=== PATIENT | male | born 1955 | race African-American/Black ===

== ENCOUNTER 2023-05-10 13:49 | Inpatient (IN) ==
[2023-05-10 15:34] LABS: BASOPHILS # (AUTO) 0.1 X10^3/uL (0.0-0.1); EOSINOPHILS # (AUTO) 0.1 x10^3/uL (0.0-0.2); HEMOGLOBIN 15.4 g/dL (13.5-18.0); LYMPHOCYTES # (AUTO) 4.1 X10^3/uL (1.3-2.9); NEUTROPHILS # (AUTO) 3.5 x10^3/uL (2.2-4.8)
[2023-05-10 15:39] LABS: EOSINOPHILS % (AUTO) 1.6 % (0.9-2.9); LYMPHOCYTES % (AUTO) 48.4 % (21.0-51.0); MEAN CORPUSCULAR HEMOGLOBIN 28.9 pg (27.0-34.0); MEAN CORPUSCULAR HGB CONC 34.3 g/dL (33.0-35.0); MEAN CORPUSCULAR VOLUME 84.2 fL (80.0-100.0); MEAN PLATELET VOLUME 7.7 fL (7.4-11.0); MONOCYTES # (AUTO) 0.7 x10^3/uL (0.3-0.8); MONOCYTES % (AUTO) 8.5 % (0.0-13.0); NEUTROPHILS % (AUTO) 40.5 % (42.0-75.0); PLATELET COUNT 215 X10^3/uL (150.0-450.0); RED BLOOD COUNT 5.34 X10^6/uL (4.7-6.0); RED CELL DISTRIBUTION WIDTH 14.1 % (11.6-16.5); WHITE BLOOD COUNT 8.6 X10^3/uL (3.6-10.0)
[2023-05-10 15:46] LABS: ALANINE AMINOTRANSFERASE 12 Units/L (12-78); ALBUMIN 4.5 g/dL (3.4-5.0); ALKALINE PHOSPHATASE 113 Units/L (46-116); ASPARTATE AMINO TRANSFERASE 14 Units/L (15-37); BLOOD UREA NITROGEN 15 mg/dL (7-18); CALCIUM 9.3 mg/dL (8.5-10.1); CARBON DIOXIDE 29.6 mmol/L (21-32); CHLORIDE 98 mmol/L (98-107); CREATININE 1.28 mg/dL (0.70-1.30); GLUCOSE 85 mg/dL (65-99); POTASSIUM 4.1 mmol/L (3.5-5.1); SODIUM 136 mmol/L (136-145); TOTAL PROTEIN 7.7 g/dL (6.4-8.2); eGFR NON BLACK RACES 59 (>60)
[2023-05-10 15:56] VITALS: BMI 23.7
[2023-05-10 15:58] LABS: PLATELET MORPHOLOGY COMMENT ABNORMAL (NORMAL)
--- NOTE | 2023-05-10 16:13 | EKG ---
Test Reason : surgical clearance Blood Pressure : */* mmHG Vent. Rate : 64 BPM Atrial Rate : 64 BPM P-R Int : 174 ms QRS Dur : 92 ms QT Int : 408 ms P-R-T Axes : 57 60 62 degrees QTc Int : 420 ms Normal sinus rhythm with sinus arrhythmia Septal infarct , age undetermined Abnormal ECG No previous ECGs available Confirmed by Brigido Yeung ([id number]) on 05/11/2023 3:11:37 PM Referred By: Confirmed By: Brigido Yeung
[2023-05-10] MEDS: LR 1,000 ML IV 1,000 ML IV SCH (17:00)
[2023-05-10] MEDS ORDERED: OMNIPAQUE 350 mg/mL 50 mL BTL 50 ML ONE (17:07)
[2023-05-10] MEDS ORDERED: NS 100 ML IV 100 ML ONE (17:07)
[2023-05-10] MEDS ORDERED: OMNIPAQUE 350 mg/mL 100 mL BTL 100 ML ONE (17:07)
--- NOTE | 2023-05-10 19:10 | CT ---
HISTORYlimb threatening ischemia both legsSTUDYCTA AORTA WITH RUNOFFCOMPARISONTECHNIQUEMultiple axial images of the abdomen and pelvis were obtained from the mesenteric vasculature to the plantar surface of the feet both prior to and after the administration of IV contrast. 3D reconstructions were performed utilizing radial maximum intensity projection imaging. Dose reduction techniques including Automated Exposure Control (AEC) and adjustment of mA and kV were utilized.FINDINGSThere is mild basilar emphysema/scarring. There is no pleural effusion or pneumothorax. The liver, pancreas, spleen, adrenal glands are normal. Kidneys are normal in size and enhancement. The gallbladder is contracted. There is liquid in the stomach. Small bowel loops are normal as is the appendix. The large bowel is normal. Urinary bladder is distended. Prostate measures 5.2 cm in diameter. There is fat in the inguinal canal bilaterally.Upper aorta: There is disease at the origin of the celiac trunk but no flow limiting stenosis. There is some soft plaque in the proximal SMA but no flow limiting stenosis. There is calcific plaque at the origin of the renal artery bilaterally but no flow limiting stenosis. There is some heterogeneous plaque in the branches of the left renal artery.Infrarenal abdominal aorta: There is heterogeneous plaque but no aneurysm or flow limiting stenosis. 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 There is fairly severe heterogeneous plaque in the left common iliac arteryExternal iliac arteries: Right side is completely occluded at the origin. There is reconstitution distally near the inguinal canal. Left-sided has a high-grade stenosis at the origin of the external iliac. There is also fairly severe disease in the left internal iliac artery.Common femoral arteries: Heterogeneous plaque in the common femoral artery bilaterally causing close to 50 percent stenosis.Superficial femoral arteries: Severe multifocal disease in the SFA bilaterally. There is near occlusion in the proximal left SFA with minimal flow seen into the distal vessel.Popliteal arteries: There is greater than 50 percent stenosis in the popliteal bilaterally.Tibial vasculature: On the right side there is a high-grade stenosis at the origin of the anterior tibial artery with reconstitution approximately 1.5 cm distally. There is 2 vessel runoff to the foot via the peroneal and popliteal artery. There is some reconstitution of the anterior tibial artery near the ankle. On the left side, there is also disease at the origin of the anterior tibial artery and to lesser extent at the origin of the posterior tibial artery. There is 3 vessel runoff to the ankle which is most pronounced in the posterior tibial artery and weak in the anterior tibial artery and peroneal artery.IMPRESSION1. 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 2. Reconstitution of the right distal external iliac artery. 3. Severe multifocal disease in the right SFA, or popliteal, and at the origin of the right anterior tibial artery.4. Fairly severe stenosis at the origin of the left external iliac artery. 5. Severe multifocal disease in the left SFA, popliteal, and at the origin of the left anterior tibial artery and left posterior tibial artery.6. Prostate hypertrophy.Electronically signed by: Arvin Egan (May 10, 2023 19:08:10)
[2023-05-10] MEDS ORDERED: NEURONTIN CAP 300 MG ONE (20:13)
[2023-05-10] MEDS: ZOCOR TAB 20 MG PO SCH (21:04)
[2023-05-10] MEDS: NEURONTIN CAP 300 MG PO SCH (21:04)
[2023-05-10] MEDS: DESYREL PO SCH (21:04)
--- NOTE | 2023-05-10 21:58 | DR.UPDATE ---
H&P UPDATE Review Yes Any changes to H&P?: No
[2023-05-11] MEDS: LR 1,000 ML IV 1,000 ML IV SCH ×3 (04:54→21:00)
[2023-05-11] MEDS: NEURONTIN CAP 300 MG PO SCH ×3 (05:03→21:00)
--- NOTE | 2023-05-11 07:14 | RAD ---
HISTORYLower extremity ischemiaSTUDYChest AP portableCOMPARISONNoneFINDINGSHeart size is normal. Marissa are normal. Aorta is calcified. Lung lanier are clear. No pleural effusions are identified. Bony thorax is unremarkable.IMPRESSIONLungs clearElectronically signed by: ZOEY GUILLEN (May 11, 2023 07:14:00)
[2023-05-11] MEDS: HYZAAR 50/12.5 MG PO SCH (08:10)
[2023-05-11] MEDS ORDERED: ANCEF VIAL 1 GRAM ONE (08:11)
[2023-05-11] MEDS ORDERED: NS 100 ML IV 100 ML ONE (08:11)
[2023-05-11] MEDS ORDERED: LR 1,000 ML IV 1,000 ML IV ONE (08:11)
[2023-05-11] MEDS ORDERED: VERSED ONE (09:08)
[2023-05-11] MEDS ORDERED: FENTANYL VIAL INJ 100 mcg ONE (09:08)
[2023-05-11] MEDS ORDERED: ZOFRAN INJ 4 MG VIAL ONE (09:09)
[2023-05-11] MEDS ORDERED: PEPCID 20 MG VIAL ONE (09:09)
[2023-05-11] MEDS ORDERED: MARCAINE 0.5% ONE (09:10)
[2023-05-11] MEDS ORDERED: HEPARIN SODIUM IN D5W 75,000 UNITS/1,500 ML BAG ONE (09:10)
[2023-05-11] MEDS ORDERED: XYLOCAINE 2 % (PLAIN) ONE (09:19)
[2023-05-11] MEDS ORDERED: VISIPAQUE 100 ML ONE ×2 (09:20→10:17)
[2023-05-11] MEDS ORDERED: PRECEDEX INJ VIAL IVP ONE (09:27)
[2023-05-11] MEDS ORDERED: BENADRYL INJ 50 MG VIAL ONE (09:29)
[2023-05-11] MEDS ORDERED: OFIRMEV IV 1000 MG VIAL 1,000 MG/100 ML VIAL IV ONE (09:29)
[2023-05-11] MEDS ORDERED: DIPRIVAN VIAL 20 ML ONE ×3 (09:29→11:13)
[2023-05-11] MEDS ORDERED: HEPARIN SODIUM INJ 5000 UNITS ONE ×2 (09:29→10:38)
[2023-05-11] MEDS ORDERED: ROBINUL ONE (09:34)
[2023-05-11] MEDS ORDERED: DECADRON INJ ONE (09:35)
[2023-05-11] MEDS ORDERED: EPHEDRINE SULFATE INJ ONE (09:35)
[2023-05-11] MEDS ORDERED: NS 1,000 ML IV 1,000 ML ONE (10:17)
[2023-05-11] MEDS ORDERED: PROTAMINE SULFATE 50 MG VIAL ONE (10:38)
[2023-05-11] MEDS ORDERED: TORADOL 30 MG VIAL ONE (12:05)
--- NOTE | 2023-05-11 12:55 | OR.IMMED ---
IMMEDIATE POST-OP NOTE Immediate Post-Op Note Pre-Op Diagnosis: critical limb ischemia right leg and left leg, right leg is w orse Post-Op Diagnosis: same Procedure: Diagnostic aortogram , diagnostic arteriogram right leg ,bilateral common iliac artery stenting, bilateral external iliac artery stenting atherectomy and drug-coated balloon angioplasty of the right popliteal and distal superficial femoral arteries, atherectomy and drug coated balloon angioplasty proximal right superficial femoral artery and distal external iliac artery Surgeon/Chaplain: Kevin Findings: complete occlusion of the right common and right external iliac arteries with reconstitution of the proximal right common femoral artery, severe stenosis of the left common iliac and left external iliac arteries, severe stenosis Proximal right superficial femoral artery ,severe stenosis distal right superficial femoral artery and popliteal artery Estimated Blood Loss: 100cc Complications: none Progress Notes: Return to ICU for diet and pain control. Will probably be discharged tomorrow and return next week for intervention of the left leg with near total occlusion left superficial femoral artery.
[2023-05-11] MEDS: PROzac PO SCH (14:13)
[2023-05-11] MEDS: PERCOCET TAB 5/325 MG PO PRN ×2 (16:26→20:59)
[2023-05-11] MEDS: ZOCOR TAB 20 MG PO SCH (20:59)
[2023-05-11] MEDS: DESYREL PO SCH (20:59)
[2023-05-12] MEDS: PERCOCET TAB 5/325 MG PO PRN ×2 (00:36→05:16)
[2023-05-12] MEDS: NEURONTIN CAP 300 MG PO SCH (05:15)
[2023-05-12] MEDS: LR 1,000 ML IV 1,000 ML IV SCH ×2 (05:15→07:15)
[2023-05-12 05:17] LABS: BLOOD UREA NITROGEN 14 mg/dL (7-18); CALCIUM 8.5 mg/dL (8.5-10.1); CARBON DIOXIDE 33.3 mmol/L (21-32); CHLORIDE 100 mmol/L (98-107); COR NA(FOR HYPERGLY) 139 mmol/L (136-145); CREATININE 1.14 mg/dL (0.70-1.30); GLUCOSE 145 mg/dL (65-99); POTASSIUM 3.5 mmol/L (3.5-5.1); SODIUM 138 mmol/L (136-145); eGFR NON BLACK RACES > 60 (>60)
[2023-05-12 08:36] VITALS: TEMP 97.2
[2023-05-12] MEDS: PROzac PO SCH (08:50)
[2023-05-12] MEDS: HYZAAR 50/12.5 MG PO SCH (08:50)
--- NOTE | 2023-05-12 11:05 | W.DIS.FURT ---
Summary of Discharge Discharge Summary of Date Date of Exam: 05/12/23 Admission Date Date of Admission: 05/10/23 Admission Diagnosis Hospital Course: This 68 year old male presented to my office on May 10 complaining of bilateral lower extremity rest pain. 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 On May 11 was taken to the operative Suite where he underwent bilateral common iliac and external iliac artery stenting with atherectomy and drug coated balloon angioplasty of the right superficial femoral and popliteal arteries. He has done well. He tolerated the procedure. Post-procedure creatinine is less than 1 . He will be discharged on his usual medications plus Xarelto 2.5 mg BID, aspirin 81 mg PO daily, and Percocet 5 mg tablets, one every six hours. Pain. He will follow up with me in one week and at that time we will schedule intervention of the left leg. Vital Signs: Vital Signs (72 hours) 05/10/23 15:00 05/10/23 16:11 05/10/23 15:11 Temperature 97.9 F Pulse Rate Pulse Rate [Left] 69 Respiratory Rate 20 Blood Pressure 170/83 Blood Pressure [Right Arm] 170/83 O2 Sat by Pulse Oximetry 97 Oxygen Delivery Method Room Air Room Air 05/10/23 15:32 05/10/23 15:45 05/10/23 16:00 Temperature Pulse Rate 68 70 77 Pulse Rate [Left] Respiratory Rate Blood Pressure Blood Pressure [Right Arm] O2 Sat by Pulse Oximetry 97 97 97 Oxygen Delivery Method Room Air 05/10/23 16:15 05/10/23 16:30 05/10/23 16:45 Temperature Pulse Rate 72 70 68 Pulse Rate [Left] Respiratory Rate Blood Pressure Blood Pressure [Right Arm] O2 Sat by Pulse Oximetry 97 96 96 Oxygen Delivery Method 05/10/23 17:00 05/10/23 19:35 05/10/23 19:00 Temperature Pulse Rate 69 67 Pulse Rate [Left] Respiratory Rate 18 Blood Pressure 139/74 143/78 Blood Pressure [Right Arm] O2 Sat by Pulse Oximetry 96 95 Oxygen Delivery Method Room Air Room Air Room Air 05/10/23 20:00 05/10/23 21:00 05/10/23 22:00 Temperature 98.3 F Pulse Rate 67 67 71 Pulse Rate [Left] Respiratory Rate 18 20 20 Blood Pressure 155/89 152/76 107/52 Blood Pressure [Right Arm] O2 Sat by Pulse Oximetry 96 97 92 L Oxygen Delivery Method Room Air Room Air Room Air 05/10/23 23:00 05/11/23 00:00 05/11/23 01:00 Temperature 97.9 F Pulse Rate 70 63 62 Pulse Rate [Left] Respiratory Rate 18 18 18 Blood Pressure 111/55 106/59 111/59 Blood Pressure [Right Arm] O2 Sat by Pulse Oximetry 93 L 94 L 95 Oxygen Delivery Method Room Air Room Air Room Air 05/11/23 02:00 05/11/23 03:00 05/11/23 04:00 Temperature 98.1 F Pulse Rate 61 62 64 Pulse Rate [Left] Respiratory Rate 18 18 18 Blood Pressure 100/53 109/67 121/65 Blood Pressure [Right Arm] O2 Sat by Pulse Oximetry 94 L 94 L 96 Oxygen Delivery Method Room Air Room Air Room Air 05/11/23 05:00 05/11/23 06:00 05/11/23 07:00 Temperature Pulse Rate 62 64 Pulse Rate [Left] Respiratory Rate 18 20 Blood Pressure 138/87 137/65 Blood Pressure [Right Arm] O2 Sat by Pulse Oximetry 95 95 Oxygen Delivery Method Room Air Room Air Room Air 05/11/23 07:00 05/11/23 07:07 05/11/23 07:07 Temperature Pulse Rate 64 65 Pulse Rate [Left] Respiratory Rate 17 28 H Blood Pressure 163/80 Blood Pressure [Right Arm] O2 Sat by Pulse Oximetry 98 96 Oxygen Delivery Method 05/11/23 07:15 05/11/23 07:30 05/11/23 07:45 Temperature Pulse Rate 65 64 63 Pulse Rate [Left] Respiratory Rate 19 20 19 Blood Pressure Blood Pressure [Right Arm] O2 Sat by Pulse Oximetry 96 97 98 Oxygen Delivery Method 05/11/23 08:00 05/11/23 08:00 05/11/23 08:16 Temperature 97.8 F Pulse Rate 65 61 Pulse Rate [Left] Respiratory Rate 29 H 18 Blood Pressure 156/82 143/92 Blood Pressure [Right Arm] O2 Sat by Pulse Oximetry 95 Oxygen Delivery Method 05/11/23 12:05 05/11/23 12:21 05/11/23 12:21 Temperature Pulse Rate 83 Pulse Rate [Left] Respiratory Rate 16 Blood Pressure 122/67 Blood Pressure [Right Arm] O2 Sat by Pulse Oximetry 96 Oxygen Delivery Method 05/11/23 12:30 05/11/23 12:30 05/11/23 12:45 Temperature Pulse Rate 81 79 Pulse Rate [Left] Respiratory Rate 20 22 Blood Pressure 125/69 Blood Pressure [Right Arm] O2 Sat by Pulse Oximetry 98 96 Oxygen Delivery Method 05/11/23 12:45 05/11/23 13:00 05/11/23 13:00 Temperature Pulse Rate 74 Pulse Rate [Left] Respiratory Rate 18 Blood Pressure 127/64 115/67 Blood Pressure [Right Arm] O2 Sat by Pulse Oximetry 98 Oxygen Delivery Method 05/11/23 13:00 05/11/23 13:15 05/11/23 13:15 Temperature 97.8 F Pulse Rate 68 Pulse Rate [Left] Respiratory Rate 18 Blood Pressure 115/67 117/68 Blood Pressure [Right Arm] O2 Sat by Pulse Oximetry 99 Oxygen Delivery Method 05/11/23 13:30 05/11/23 13:30 05/11/23 13:45 Temperature Pulse Rate 79 Pulse Rate [Left] Respiratory Rate 24 Blood Pressure 127/72 132/82 Blood Pressure [Right Arm] O2 Sat by Pulse Oximetry 99 Oxygen Delivery Method 05/11/23 13:45 05/11/23 14:00 05/11/23 14:00 Temperature 97.4 F L Pulse Rate 79 63 Pulse Rate [Left] Respiratory Rate 22 12 Blood Pressure 123/67 Blood Pressure [Right Arm] O2 Sat by Pulse Oximetry 99 99 Oxygen Delivery Method 05/11/23 12:35 05/11/23 14:00 05/11/23 14:15 Temperature Pulse Rate Pulse Rate [Left] Respiratory Rate 16 Blood Pressure 123/67 129/74 Blood Pressure [Right Arm] O2 Sat by Pulse Oximetry Oxygen Delivery Method 05/11/23 14:15 05/11/23 14:30 05/11/23 14:30 Temperature Pulse Rate 73 73 Pulse Rate [Left] Respiratory Rate 20 17 Blood Pressure 127/69 Blood Pressure [Right Arm] O2 Sat by Pulse Oximetry 100 99 Oxygen Delivery Method 05/11/23 14:45 05/11/23 14:45 05/11/23 15:00 Temperature Pulse Rate 67 Pulse Rate [Left] Respiratory Rate 17 Blood Pressure 116/62 131/68 Blood Pressure [Right Arm] O2 Sat by Pulse Oximetry 100 Oxygen Delivery Method 05/11/23 15:00 05/11/23 15:15 05/11/23 15:15 Temperature Pulse Rate 76 72 Pulse Rate [Left] Respiratory Rate 18 14 Blood Pressure 119/62 Blood Pressure [Right Arm] O2 Sat by Pulse Oximetry 100 98 Oxygen Delivery Method 05/11/23 15:30 05/11/23 15:30 05/11/23 15:45 Temperature Pulse Rate 73 Pulse Rate [Left] Respiratory Rate 19 Blood Pressure 137/71 118/63 Blood Pressure [Right Arm] O2 Sat by Pulse Oximetry 100 Oxygen Delivery Method 05/11/23 15:45 05/11/23 16:00 05/11/23 16:00 Temperature Pulse Rate 72 80 Pulse Rate [Left] Respiratory Rate 19 19 Blood Pressure 117/60 Blood Pressure [Right Arm] O2 Sat by Pulse Oximetry 99 96 Oxygen Delivery Method 05/11/23 16:15 05/11/23 16:16 05/11/23 16:16 Temperature Pulse Rate 69 67 Pulse Rate [Left] Respiratory Rate 41 H 21 Blood Pressure 147/73 Blood Pressure [Right Arm] O2 Sat by Pulse Oximetry Oxygen Delivery Method 05/11/23 16:26 05/11/23 16:30 05/11/23 16:30 Temperature Pulse Rate 75 Pulse Rate [Left] Respiratory Rate 16 18 Blood Pressure 132/69 Blood Pressure [Right Arm] O2 Sat by Pulse Oximetry 96 Oxygen Delivery Method 05/11/23 16:45 05/11/23 16:45 05/11/23 17:00 Temperature Pulse Rate 73 Pulse Rate [Left] Respiratory Rate 18 Blood Pressure 141/76 118/70 Blood Pressure [Right Arm] O2 Sat by Pulse Oximetry 96 Oxygen Delivery Method 05/11/23 17:00 05/11/23 17:26 05/11/23 17:15 Temperature Pulse Rate 72 73 Pulse Rate [Left] Respiratory Rate 32 H 16 25 H Blood Pressure Blood Pressure [Right Arm] O2 Sat by Pulse Oximetry 96 96 Oxygen Delivery Method 05/11/23 17:30 05/11/23 17:31 05/11/23 17:31 Temperature Pulse Rate 68 64 Pulse Rate [Left] Respiratory Rate 21 21 Blood Pressure 132/69 Blood Pressure [Right Arm] O2 Sat by Pulse Oximetry 96 95 Oxygen Delivery Method 05/11/23 17:45 05/11/23 18:00 05/11/23 18:01 Temperature 97.8 F Pulse Rate 78 70 Pulse Rate [Left] Respiratory Rate 25 H 21 Blood Pressure 154/71 Blood Pressure [Right Arm] O2 Sat by Pulse Oximetry 93 L 96 Oxygen Delivery Method 05/11/23 19:00 05/11/23 19:00 05/11/23 19:00 Temperature Pulse Rate 89 Pulse Rate [Left] Respiratory Rate 28 H Blood Pressure 151/66 Blood Pressure [Right Arm] O2 Sat by Pulse Oximetry 96 Oxygen Delivery Method Room Air Room Air Room Air 05/11/23 20:00 05/11/23 20:59 05/12/23 00:36 Temperature 97.9 F Pulse Rate 80 Pulse Rate [Left] Respiratory Rate 19 18 18 Blood Pressure 136/65 Blood Pressure [Right Arm] O2 Sat by Pulse Oximetry 96 Oxygen Delivery Method Room Air 05/11/23 21:00 05/11/23 21:59 05/11/23 22:58 Temperature Pulse Rate 90 80 87 Pulse Rate [Left] Respiratory Rate 22 22 18 Blood Pressure 137/63 122/58 92/54 Blood Pressure [Right Arm] O2 Sat by Pulse Oximetry 95 94 L 93 L Oxygen Delivery Method Room Air Room Air Room Air 05/11/23 21:59 05/12/23 00:00 05/12/23 01:00 Temperature 97.9 F Pulse Rate 92 H 80 Pulse Rate [Left] Respiratory Rate 18 20 22 Blood Pressure 116/59 117/58 Blood Pressure [Right Arm] O2 Sat by Pulse Oximetry 93 L 93 L Oxygen Delivery Method Room Air Room Air 05/12/23 01:36 05/12/23 02:00 05/12/23 03:00 Temperature Pulse Rate 79 73 Pulse Rate [Left] Respiratory Rate 18 22 18 Blood Pressure 113/57 126/57 Blood Pressure [Right Arm] O2 Sat by Pulse Oximetry 93 L 93 L Oxygen Delivery Method Room Air Room Air 05/12/23 04:00 05/12/23 04:58 05/12/23 05:16 Temperature 98.3 F Pulse Rate 72 81 Pulse Rate [Left] Respiratory Rate 18 16 18 Blood Pressure 134/61 145/70 Blood Pressure [Right Arm] O2 Sat by Pulse Oximetry 94 L 94 L Oxygen Delivery Method Room Air Room Air 05/12/23 06:00 05/12/23 06:16 05/11/23 21:15 Temperature Pulse Rate 75 85 Pulse Rate [Left] Respiratory Rate 19 18 23 Blood Pressure 125/60 Blood Pressure [Right Arm] O2 Sat by Pulse Oximetry 94 L 95 Oxygen Delivery Method Room Air 05/11/23 21:30 05/11/23 21:45 05/11/23 22:00 Temperature Pulse Rate 84 85 75 Pulse Rate [Left] Respiratory Rate 21 22 24 Blood Pressure Blood Pressure [Right Arm] O2 Sat by Pulse Oximetry 96 96 94 L Oxygen Delivery Method 05/11/23 22:00 05/11/23 22:15 05/11/23 22:30 Temperature Pulse Rate 78 79 Pulse Rate [Left] Respiratory Rate 26 H 20 Blood Pressure 122/58 Blood Pressure [Right Arm] O2 Sat by Pulse Oximetry 91 L 94 L Oxygen Delivery Method 05/11/23 22:45 05/11/23 23:00 05/11/23 23:00 Temperature Pulse Rate 87 87 Pulse Rate [Left] Respiratory Rate 21 18 Blood Pressure 92/54 Blood Pressure [Right Arm] O2 Sat by Pulse Oximetry 91 L 90 L Oxygen Delivery Method 05/11/23 23:15 05/11/23 23:30 05/11/23 23:45 Temperature Pulse Rate 91 H 87 84 Pulse Rate [Left] Respiratory Rate 19 20 21 Blood Pressure Blood Pressure [Right Arm] O2 Sat by Pulse Oximetry 90 L 93 L 92 L Oxygen Delivery Method 05/12/23 00:00 05/12/23 00:00 05/12/23 00:15 Temperature Pulse Rate 86 87 Pulse Rate [Left] Respiratory Rate 20 22 Blood Pressure 116/59 Blood Pressure [Right Arm] O2 Sat by Pulse Oximetry 91 L 93 L Oxygen Delivery Method 05/12/23 00:30 05/12/23 00:45 05/12/23 01:00 Temperature Pulse Rate 82 79 Pulse Rate [Left] Respiratory Rate 25 H 20 Blood Pressure 117/58 Blood Pressure [Right Arm] O2 Sat by Pulse Oximetry 93 L 93 L Oxygen Delivery Method 05/12/23 01:00 05/12/23 01:15 05/12/23 01:30 Temperature Pulse Rate 80 76 75 Pulse Rate [Left] Respiratory Rate 22 19 19 Blood Pressure Blood Pressure [Right Arm] O2 Sat by Pulse Oximetry 92 L 92 L 94 L Oxygen Delivery Method 05/12/23 01:45 05/12/23 02:00 05/12/23 02:00 Temperature Pulse Rate 71 77 Pulse Rate [Left] Respiratory Rate 15 16 Blood Pressure 115/57 Blood Pressure [Right Arm] O2 Sat by Pulse Oximetry 94 L 95 Oxygen Delivery Method 05/12/23 02:15 05/12/23 02:30 05/12/23 02:45 Temperature Pulse Rate 78 79 78 Pulse Rate [Left] Respiratory Rate 16 20 18 Blood Pressure Blood Pressure [Right Arm] O2 Sat by Pulse Oximetry 92 L 92 L 91 L Oxygen Delivery Method 05/12/23 03:00 05/12/23 03:00 05/12/23 03:15 Temperature Pulse Rate 78 81 Pulse Rate [Left] Respiratory Rate 22 15 Blood Pressure 126/57 Blood Pressure [Right Arm] O2 Sat by Pulse Oximetry 92 L 91 L Oxygen Delivery Method 05/12/23 03:30 05/12/23 03:45 05/12/23 04:00 Temperature Pulse Rate 83 82 Pulse Rate [Left] Respiratory Rate 16 15 Blood Pressure 134/61 Blood Pressure [Right Arm] O2 Sat by Pulse Oximetry 91 L 90 L Oxygen Delivery Method 05/12/23 04:00 05/12/23 04:15 05/12/23 04:30 Temperature Pulse Rate 83 79 81 Pulse Rate [Left] Respiratory Rate 19 23 24 Blood Pressure Blood Pressure [Right Arm] O2 Sat by Pulse Oximetry 91 L 95 95 Oxygen Delivery Method 05/12/23 04:45 05/12/23 05:00 05/12/23 05:00 Temperature Pulse Rate 77 78 Pulse Rate [Left] Respiratory Rate 22 31 H Blood Pressure 145/70 Blood Pressure [Right Arm] O2 Sat by Pulse Oximetry 94 L 94 L Oxygen Delivery Method 05/12/23 05:15 05/12/23 05:30 05/12/23 05:45 Temperature Pulse Rate 82 76 79 Pulse Rate [Left] Respiratory Rate 29 H 22 22 Blood Pressure Blood Pressure [Right Arm] O2 Sat by Pulse Oximetry 96 96 95 Oxygen Delivery Method 05/12/23 06:00 05/12/23 06:00 05/12/23 06:15 Temperature Pulse Rate 73 80 Pulse Rate [Left] Respiratory Rate 20 26 H Blood Pressure 125/60 Blood Pressure [Right Arm] O2 Sat by Pulse Oximetry 94 L 95 Oxygen Delivery Method 05/12/23 06:30 05/12/23 06:45 05/12/23 07:00 Temperature Pulse Rate 74 74 Pulse Rate [Left] Respiratory Rate 29 H 21 Blood Pressure 128/69 Blood Pressure [Right Arm] O2 Sat by Pulse Oximetry 93 L 92 L Oxygen Delivery Method 05/12/23 07:00 05/12/23 07:15 05/12/23 07:30 Temperature Pulse Rate 64 69 62 Pulse Rate [Left] Respiratory Rate 16 16 29 H Blood Pressure Blood Pressure [Right Arm] O2 Sat by Pulse Oximetry 92 L 91 L 94 L Oxygen Delivery Method 05/12/23 07:45 05/12/23 08:00 05/12/23 08:01 Temperature Pulse Rate 60 90 83 Pulse Rate [Left] Respiratory Rate 27 H 36 H 35 H Blood Pressure Blood Pressure [Right Arm] O2 Sat by Pulse Oximetry 93 L 93 L 94 L Oxygen Delivery Method 05/12/23 08:01 05/12/23 08:15 05/12/23 08:30 Temperature 97.2 F L Pulse Rate 78 67 Pulse Rate [Left] Respiratory Rate 28 H 21 Blood Pressure 150/80 Blood Pressure [Right Arm] O2 Sat by Pulse Oximetry 94 L 96 Oxygen Delivery Method Labs: Laboratory Last Values WBC 8.6 X10^3/uL (3.6-10.0) 05/10/23 15:25 RBC 5.34 X10^6/uL (4.7-6.0) 05/10/23 15:25 Hgb 15.4 g/dL (13.5-18.0) 05/10/23 15:25 Hct 45.0 % (42.0-54.0) 05/10/23 15:25 MCV 84.2 fL (80.0-100.0) 05/10/23 15:25 MCH 28.9 pg (27.0-34.0) 05/10/23 15:25 MCHC 34.3 g/dL (33.0-35.0) 05/10/23 15:25 RDW 14.1 % (11.6-16.5) 05/10/23 15:25 Plt Count 215 X10^3/uL (150.0-450.0) 05/10/23 15:25 Plt Count Comment Adequate (ADEQUATE) 05/10/23 15:25 MPV 7.7 fL (7.4-11.0) 05/10/23 15:25 Neut % (Auto) 40.5 % (42.0-75.0) L 05/10/23 15:25 Lymph % (Auto) 48.4 % (21.0-51.0) 05/10/23 15:25 [place] % (Auto) 8.5 % (0.0-13.0) 05/10/23 15:25 Eos % (Auto) 1.6 % (0.9-2.9) 05/10/23 15:25 Baso % (Auto) 1.0 % (0.2-1.0) 05/10/23 15:25 Neut # (Auto) 3.5 x10^3/uL (2.2-4.8) 05/10/23 15:25 Lymph # (Auto) 4.1 X10^3/uL (1.3-2.9) H 05/10/23 15:25 [place] # (Auto) 0.7 x10^3/uL (0.3-0.8) 05/10/23 15:25 Eos # (Auto) 0.1 x10^3/uL (0.0-0.2) 05/10/23 15:25 Baso # (Auto) 0.1 X10^3/uL (0.0-0.1) 05/10/23 15:25 Absolute Nucleated RBC 0.1 /100WBC 05/10/23 15:25 Plt Clumps, EDTA Rare 05/10/23 15:25 Plt Morphology Comment Abnormal (NORMAL) 05/10/23 15:25 RBC Morphology Normal (NORMAL) 05/10/23 15:25 Sodium 138 mmol/L (136-145) 05/12/23 04:08 Corrected Sodium 139 mmol/L (136-145) 05/12/23 04:08 Potassium 3.5 mmol/L (3.5-5.1) 05/12/23 04:08 Chloride 100 mmol/L (98-107) 05/12/23 04:08 Carbon Dioxide 33.3 mmol/L (21-32) H 05/12/23 04:08 BUN 14 mg/dL (7-18) 05/12/23 04:08 Creatinine 1.14 mg/dL (0.70-1.30) 05/12/23 04:08 Est GFR (MDRD) Af Amer > 60 (>60) 05/12/23 04:08 Est GFR (MDRD) Non-Af > 60 (>60) 05/12/23 04:08 Glucose 145 mg/dL (65-99) H 05/12/23 04:08 Calcium 8.5 mg/dL (8.5-10.1) 05/12/23 04:08 Corrected Calcium TNP 05/10/23 15:25 Total Bilirubin 0.40 mg/dL (0.2-1.0) 05/10/23 15:25 AST 14 Units/L (15-37) L 05/10/23 15:25 ALT 12 Units/L (12-78) 05/10/23 15:25 Alkaline Phosphatase 113 Units/L (46-116) 05/10/23 15:25 Total Protein 7.7 g/dL (6.4-8.2) 05/10/23 15:25 Albumin 4.5 g/dL (3.4-5.0) 05/10/23 15:25 Globulin 3.2 g/dL (2.5-4.5) 05/10/23 15:25 Albumin/Globulin Ratio 1.4 Ratio (1.1-2.1) 05/10/23 15:25 Reason For Visit: CRITICAL ISCHEMIA BILATERAL LOWER EXTREMITIES Discharge Date Discharge Date: 05/12/23 Discharge Diagnosis All Active Problems (Updated 05/12/23 @ 10:48 by Brigido Brown) Atherosclerosis of [place] arteries of extremities with rest pain, left leg (Acute) Atherosclerosis of [place] arteries of extremities with rest pain, right leg (Acute) Plan of Treatment: Continue with present treatment and follow up plan. Pt is to keep follow up appointment as instructed and take medications as ordered. Discharge Medications Discharge Medications: codeine Allergy (Mild, Verified 05/10/23 15:27) CONTINUE taking the following medications fluoxetine 20 mg capsule 20 mg PO QDAY 05/10/23 [History] losartan 100 mg-hydrochlorothiazide 25 mg tablet 1 tab PO QDAY 05/10/23 [History] pantoprazole 40 mg tablet,delayed release 40 mg PO QDAY 05/10/23 [History] simvastatin 20 mg tablet 20 mg PO QPM 05/10/23 [History] trazodone 50 mg tablet 50 mg PO QPM 05/10/23 [History] New Prescriptions aspirin 81 mg capsule 81 mg PO QDAY #180 caps 05/12/23 [Rx] oxycodone-acetaminophen 5 mg-325 mg tablet (Percocet) 1 tab PO Q6H PRN #30 tabs 05/12/23 [Rx] rivaroxaban 2.5 mg tablet (Xarelto) 2.5 mg PO BID #180 tabs 05/12/23 [Rx] Discharge Disposition Assessment: see hospital course Discharge Plan Discharge Plan Hospital Course: This 68 year old male presented to my office on May 10 complaining of bilateral lower extremity rest pain. He was admitted, hydrated and underwent CT angiogram of the aorta with runoff showing completely occluded right common and right external iliac arteries, severe disease of the leftcommon and left external iliac arteries , severe disease of the right proximal surficial femoral and distal superficial femoral and popliteal arteries with near total occl usion of the left superficial femoral artery . On May 11 was taken to the operative Suite where he underwent bilateral common iliac and external iliac artery stenting with atherectomy and drug coated balloon angioplasty of the right superficial femoral and popliteal arteries. He has done well. He tolerated the procedure. Post-procedure creatinine is less than 1 . He will be discharged on his usual medications plus Xarelto 2.5 mg BID, aspirin 81 mg PO daily, and Percocet 5 mg tablets, one every six hours. Pain. He will follow up with me in one week and at that time we will schedule intervention of the left leg. Patient Disposition: 01 HOME, SELF-CARE Condition: Stable Health Concerns: Post Hospitalization: new medications and changes needed to prevent readmission or further decline. Pt educated and given instructions on all concerns. Plan of Treatment: Continue with present treatment and follow up plan. Pt is to keep follow up appointment as instructed and take medications as ordered. Assessment: see hospital course Prescriptions: New aspirin 81 mg capsule 81 mg PO QDAY Qty: 180 0RF Xarelto 2.5 mg tablet 2.5 mg PO BID Qty: 180 6RF oxycodone-acetaminophen [Percocet] 5-325 mg tablet 1 tab PO Q6H MDD 4 PRNQty: 30 0RF Continued trazodone 50 mg tablet 50 mg PO QPM losartan-hydrochlorothiazide 100-25 mg tablet 1 tab PO QDAY pantoprazole 40 mg tablet,delayed release (DR/EC) 40 mg PO QDAY simvastatin 20 mg tablet 20 mg PO QPM fluoxetine 20 mg capsule 20 mg PO QDAY Follow ups/Referrals Follow ups/Referrals: Brigido Brown [Primary Care Provider] - 1 WEEK Instructions Stand Alone Forms: Excuse From Work or School, Post Hospital Follow Up Care
[2023-05-12 11:37] VITALS: BP 140/60
[2023-05-12 13:11] VITALS: PULSE 81; RESP 59; O2SAT 86
--- NOTE | 2023-05-12 19:10 | DR.OPNOTE ---
OP NOTE Pre-Op Diagnosis: Critical limb threatening ischemia both legs Post-Op Diagnosis: same Procedure Date Date Of Procedure: 05/11/23 Procedure: PROCEDURE: Diagnostic aortogram, diagnostic arteriogram right leg ,bilateral common iliac artery stenting ,bilateral external iliac artery stenting ,atherectomy, drug-coated balloon angioplasty right distal superficial femoral artery and popliteal artery , atherectomy and drug-coated balloon angioplasty proximal right superficial femoral artery .intravascular ultrasound of the right common iliac artery complete occlusion and distal aorta to better delineate a dissection and re-enter the aortic lumen NARRATIVE: The patient was taken to the operative suite and placed in the supine position. The left groin and entire right leg were prepped and draped in sterile fashion. The patient was given intravenous sedation supervised by myself. Time out for the procedure obtained . Ultrasound used to identify the left femoral artery and the skin overlying it infiltrated with 0.5% Marcaine. Ultrasound used to guide puncture of the left femoral artery and a 0.012 inch guide wire placed. Incision made over the guide wire at the skin edge with a # 11 knife blade and a micro sheath placed over the guide wire into the left femoral artery. The small wire exchanged for a 0.035 inch Advantage glide wire and the micro sheath exchanged for a 5- fr vascular sheath . 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 There was also severe stenosis of the left common and proximal external iliac artery. Patient given 5000 units of IV heparin . The Omni catheter used to attempt to steer the wire down the right external iliac artery. Since a wire would not pass the occlusion from above we elected to perform a retrograde approach as well. Ultrasound used to identify the right posterior tibial artery , and the skin overlying it infiltrated with 0.5% Marcaine . Ultrasound use to guide puncture of the right posterior artery at the ankle and a 0.012 inch guide wire placed. A 6-7 Fr slim sheath placed over the guide wire into the right posterior tibial artery and arteriogram carried out to confirm that we were indeed in the right posterior tibial artery . From below a guide wire and Clear catheter used to get across right iliac artery occlusion but it appeared to be in a dissection plane of the aorta and arteriogram did not show flow down the left side. We exchanged the 0.035 inch wire for a 0.018 in wire using the Clear catheter in place and intravascular ultrasound probe over this. 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 We continued to work and take a different course over the right iliac artery and eventually got into the [place] aorta higher than the iliac bifurcation but with good flow down the left side by arteriogram . This was confirmed with intravascular ultrasound. At this point we elected to stent the distal aorta from both sides and further stent both common and external iliac arteries This was selective catheterization from the right foot . Over the wire on the right side we placed an Viabahn 8 mm x 59 mm covered stent and over the left sided wire we placed an 8 mmx 57 mm stent. Both stents extended into the distal aorta and they were expanded in kissing fashion. The left femoral artery 5 Fr sheath exchanged for a 7 Fr vascular sheath . Over the left wire we placed a 7mmx 120 mm [place] drug coated stent and and overlapped the initial stent and expanded it. On the right side we overlapped the original stent with a 8 mmx 39 mm Viabahn covered stent and expanded it and placed a 3rd stent on the right side , an [place] 7 mmx 80 mm drug coated stent and expanded it . Post procedure aortogram showed good flow both iliac arteries and the aorta with no leak . Over the guide wire in the right leg we placed the Clear catheter all the way through the right-sided stent and exchange the 0.035 inch wire for 0.018 in wire and used the [employer] Stream atherectomy device to perform ather ectomy of the of the popliteal artery and the entire right superficial femoral artery. The Jet Stream device removed and over the wire we placed a 5 mm by 200 mm [employer] drug-coated balloon boy and balloon dilated the popliteal artery and distal superficial femoral artery by inflating for 3 minutes and then removing it. Over this wire again we placed a 6 mm by 200 mm [employer] [place] drug-coated balloon in the proximal superficial femoral artery overlapping the initial balloon and inflated it for three minutes and then removed it. Post-procedure arteriogram showed excellent results. Wires and devices devices removed . The patient has been given an additional 3,000 of Heparin at 1 hour. A 0.035 inch wire placed through the left femoral artery sheath . The left femoral artery sheath exchanged for an Angioseal device used to close the puncture of the left femoral artery .Tibial band placed and inflated over the puncture site of the right posterior tibial artery after removing all devices and the sheath. Hemostatic dressing placed over the left groin puncture site and the patient taken to the ICU in good condition. Disposition/Condition: Pt. tolerated procedure without difficulty. Extubated in the OR and taken to PACU in stable condition.
== END 2023-05-12 12:30 | disposition home or self-care (01) | DRG 272 ==
LOC: ICU 14:17
PROVIDERS: ADMIT Surgery; ATTEND Surgery
DX: I70.223 Atherosclerosis of native arteries of extremities with rest pain, bilateral legs; E78.2 Mixed hyperlipidemia; E11.65 Type 2 diabetes mellitus with hyperglycemia; I10 Essential (primary) hypertension; Z72.0 Tobacco use